=== PATIENT | female | born 1945 | race Caucasian/White ===

== ENCOUNTER 2016-12-19 21:24 | Emergency (ER) | payer OTHER ==
[~2016-12-19] VITALS: Ht 170.2 cm; Wt 68.0 kg
[~2016-12-19 21:24] MED LIST: ALEN70TA30 PO; ATOR20TA38 PO; DIGO125T PO; DILT240C98 PO; GLAT20KI2 SQ; LOV60I SC; METO-448 PO
--- NOTE | 2016-12-19 21:35 | ERA ---
ER Documentation Chief Complaint Date/Time DATE: 12/19/16 TIME: 21:35 Chief Complaint Shortness of breath HPI The patient is a 71-year-old female, presenting to the ER because of acute on chronic cough and shortness of breath today. She denies fever, chills, nasal congestion, nasal discharge, neck pain, chest pain with exertion or vomiting or diaphoresis. She denies abdominal pain, vomiting, dysuria, diarrhea, constipation. She does not smoke or drink Past medical history: Hypertension, dyslipidemia, osteoporosis, atrial fibrillation, dementia, MS, COPD Past surgical history: Back, hysterectomy, cholecystectomy ROS All systems reviewed and are negative except as per history of present illness. Medications Home Meds Reported Medications Glatiramer Acetate (Copaxone) 20 Mg/Kit Kit, SQ DAILY, #30 SYR 02/06/16 Enoxaparin Sodium (Enoxaparin Sodium) 60 Mg/0.6 Ml Syringe, 60 MG SC BID, SYR 02/06/16 Alendronate Sodium* (Fosamax*) 70 Mg Tablet, 70 MG PO Q7D, #4 TAB 02/06/16 Atorvastatin Calcium* (Atorvastatin Calcium*) 20 Mg Tablet, 20 MG PO QHS, #30 TAB 02/06/16 Digoxin* (Digoxin*) 0.125 Mg Tab, 0.125 MG PO DAILY, #30 TAB 02/06/16 Metoprolol Tartrate* (Lopressor*) 25 Mg Tab, 25 MG PO BID, #60 TAB 02/06/16 Diltiazem Hcl* (Diltiazem XT) 240 Mg Capsule.er, 240 MG PO BID, #30 CAP 02/06/16 Allergies Allergies: Coded Allergies: No Known Allergy (Unverified , 02/06/16) PMhx/Soc History of Surgery: Yes (BACK, HYSTERECTOMY, GALL BLADDER) Anesthesia Reaction: No Hx Neurological Disorder: Yes (DEMENTIA, STROKE) Hx Respiratory Disorders: No Hx Cardiac Disorders: Yes (A-FIB) Hx Psychiatric Problems: No Hx Miscellaneous Medical Probl: Yes (MS) Hx Alcohol Use: No Hx Substance Use: Yes Hx Tobacco Use: Yes Physical Exam Vitals Vital Signs Date Time Temp Pulse Resp B/P Pulse Ox O2 Delivery O2 Flow Rate FiO2 12/19/16 22:40 88 28 97 Nasal Cannula 2.0 28 12/19/16 22:36 Nasal Cannula 2 12/19/16 21:40 98.1 80 27 131/63 93 Physical Exam Const: No acute distress. Head: Atraumatic. Eyes: Normal Conjunctiva. ENT: Normal External Ears, Nose and Mouth. Neck: Full range of motion. No meningismus. Resp: Bilateral expiratory wheezes and rhonchi Cardio: Irregularly irregular Abd: Soft, non distended, normal bowel sounds, non tender. Skin: No petechiae or rashes. Back: No midline or flank tenderness. Ext: No cyanosis, or edema. Neur: Awake and alert. No focal deficit Psych: Normal Mood and Affect. Result Diagram: 12/19/16224412/19/162244 Results 24 hrs Laboratory Tests Test 12/19/16 22:39 12/19/16 22:45 12/19/16 23:40 Bedside Urine Blood 3+ Bedside Urine Glucose (UA) Negative Bedside Urine Ketones (LAB) Negative Bedside Urine Leukocyte Esterase (L Trace Bedside Urine Nitrite (LAB) Negative Bedside Urine Protein (LAB) 2+ Bedside Urine pH (LAB) 5.5 Activated Partial Thromboplast Time 54.6Sec Alanine Aminotransferase (ALT/SGPT) 23IU/L Albumin 4.2g/dl Albumin/Globulin Ratio 1.05 Alkaline Phosphatase 84IU/L Anion Gap 20 Aspartate Amino Transf (AST/SGOT) 28IU/L B-Type Natriuretic Peptide 1050PG/ML Basophils # 0.010^3/ul Basophils % 0.3% Blood Urea Nitrogen 27mg/dl Calcium Level 9.6mg/dl Carbon Dioxide Level 25mmol/L Chloride Level 103mmol/L Creatinine 0.90mg/dl Digoxin Level 1.1ng/ml Direct Bilirubin 0.00mg/dl Eosinophils # 0.110^3/ul Eosinophils % 1.0% Globulin 4.00g/dl Glucose Level 108mg/dl Hematocrit 39.9% Hemoglobin 13.5g/dl INR International Normalized Ratio 1.31 Indirect Bilirubin 0.2mg/dl Lactic Acid Level 1.7mmol/L 1.6mmol/L Lymphocytes # 1.210^3/ul Lymphocytes % 8.8% Mean Corpuscular Hemoglobin 31.0pg Mean Corpuscular Hemoglobin Concent 33.8g/dl Mean Corpuscular Volume 91.5fl Mean Platelet Volume 9.9fl Monocytes # 0.810^3/ul Monocytes % 6.0% Neutrophils # 11.410^3/ul Neutrophils % 83.3% Nucleated Red Blood Cells # 0.010^3/ul Nucleated Red Blood Cells % 0.0/100WBC Platelet Count 54669^3/UL Potassium Level 4.6mmol/L Prothrombin Time 16.4Sec Prothrombin Time Ratio 1.3 Red Blood Count 4.3610^6/ul Red Cell Distribution Width 13.3% Sodium Level 143mmol/L Total Bilirubin 0.2mg/dl Total Protein 8.2g/dl Troponin I 0.022ng/ml White Blood Count 13.710^3/ul Current Medications Medications (Trade) Dose Ordered Sig/Sunil Route PRN Reason Start Time Stop Time Status Last Admin Dose Admin Levalbuterol (Xopenex Neb) 1.25 mg ONCE ONCE N 12/19/16 22:00 12/19/16 22:01 DC 12/19/16 22:40 Ipratropium [place] 0.5 mg 0.5 mg ONCE ONCE N 12/19/16 22:00 12/19/16 22:01 DC 12/19/16 22:40 Levofloxacin/ Dextrose (Levaquin 750 Mg/ D5W 150 ml (Pmx)) 150 ml @ 100 mls/hr ONCE ONCE IVPB 12/20/16 00:30 12/20/16 01:59 12/20/16 00:22 Methylprednisolone Sodium Succinate (Solu-Medrol) 125 mg ONCE ONCE IV 12/20/16 00:30 12/20/16 00:31 DC 12/20/16 00:23 Procedures/MDM EKG: Read by emergency physician Rate/Rhythm: Atrial fibrillation 78 beats/min QRS, ST, T-waves: No ST elevation, no T inversion, nonspecific ST and T abnormality, LAD Impression: Abnormal EKG [place] [id number] Radiology Main Line: [phone] DIAGNOSTIC IMAGING REPORT Patient: JULIO MARTINEZ : 1945 Age: 71 Sex: F MR #: [id number] DOS: 12/19/16 2139 Ordering MD: STERLING SOLORIO MD Location: E/R Room/Bed: PROCEDURE: XR Chest. CLINICAL INDICATION: Cough and fever. TECHNIQUE: Single frontal view of the chest was obtained COMPARISON: None FINDINGS: Cardiomegaly and atherosclerotic calcifications in the thoracic aorta. The lungs are clear. There is no pleural effusion or pneumothorax. IMPRESSION: No acute disease. RPTAT: [facility] Physician Fuad Date Time Electronically viewed and signed by Physician Fuad on 12/19/2016 22:31 RS/ CC: STERLING SOLORIO MD MEDICAL MAKING DECISION: The patient is a 71-year-old female, presenting with acute COPD exacerbation, acute dehydration. She was treated with Xopenex 1.25 mg and Atrovent 0.5 mg bolus, Levaquin IV, Solu-Medrol 125 mg IV and normal saline 500 mL IV with good response. The differential diagnoses considered include but are not limited to asthma, COPD, pneumonia, pulmonary embolus, pleural effusion, congestive heart failure. Critical Care: Time: 35 minutes excluding all billable procedures. Treatments/Evaluations: Close monitoring and treatment of unstable vital signs, cardiorespiratory, and neurologic status, while maintaining tight balance of fluid, respiratory, and cardiac interventions. Departure Diagnosis: Primary Impression: COPD exacerbation Additional Impression: Dehydration Condition: Stable Comments I discussed the findings with the patient. I discussed the patient with the [facility] physician Dr Ferrari who was made aware of the lab, the treatment, the patient condition. He accepted the patient at 12:50 AM; the patient is transferred via ambulance to [facility] facility STERLING SOLORIO MD Dec 19, 2016 21:35
[2016-12-19 21:40] VITALS: Ht 170.2 cm; Wt 68.0 kg
[2016-12-19] MEDS ORDERED: LEVALBUTEROL (NEB) 1.25 MG/0.5 ML AMP HHN ONE (22:00)
[2016-12-19] MEDS ORDERED: IPRATROPIUM (NEB) 0.5 MG/2.5 ML AMP HHN ONE (22:00)
--- NOTE | 2016-12-19 22:31 | RADRPT ---
PROCEDURE: XR Chest. CLINICAL INDICATION: Cough and fever. TECHNIQUE: Single frontal view of the chest was obtained COMPARISON: None FINDINGS: Cardiomegaly and atherosclerotic calcifications in the thoracic aorta. The lungs are clear. There is no pleural effusion or pneumothorax. IMPRESSION: No acute disease. RPTAT: [facility] Physician Fuad Date Time Electronically viewed and signed by Rai Garcia Physician on 12/19/2016 22:31 RS/
[2016-12-19 22:37] LABS: URINE BLOOD (Dip) POC 3+ (NEGATIVE)
[2016-12-19 23:12] LABS: ADD SCAN DIFF NO
[2016-12-19 23:15] LABS: BASOPHILS % 0.3 % (0.0-2.0); EOSINOPHILS # 0.1 10^3/ul (0.0-0.5); HEMATOCRIT 39.9 % (37.0-47.0); HEMOGLOBIN 13.5 g/dl (12.0-16.0); LYMPHOCYTES # 1.2 10^3/ul (0.8-2.9); LYMPHOCYTES % 8.8 % (15.0-51.0); MEAN CORPUSCULAR HGB CONC 33.8 g/dl (32.0-37.0); MEAN CORPUSCULAR VOLUME 91.5 fl (82.0-101.0); MEAN PLATELET VOLUME 9.9 fl (7.4-10.4); MONOCYTE # 0.8 10^3/ul (0.3-0.9); NEUTROPHIL # 11.4 10^3/ul (1.6-7.5); NEUTROPHILS % 83.3 % (39.0-77.0); PLATELET COUNT 224 10^3/UL (140-415); RED BLOOD COUNT 4.36 10^6/ul (4.20-5.40); RED CELL DISTRIBUTION WIDTH 13.3 % (11.5-14.5); WHITE BLOOD COUNT 13.7 10^3/ul (4.8-10.8)
[2016-12-19 23:25] LABS: INR 1.31; PROTIME 16.4 Sec (12.2-14.2); PT RATIO 1.3
[2016-12-19 23:27] LABS: PARTIAL THROMBOPLASTIN TIME 54.6 Sec (25.0-35.0)
[2016-12-19 23:53] LABS: ALBUMIN 4.2 g/dl (3.3-4.9)
[2016-12-19 23:54] LABS: POTASSIUM 4.6 mmol/L (3.5-5.1)
[2016-12-19 23:56] LABS: ALBUMIN/GLOBULIN RATIO 1.05; BILIRUBIN,INDIRECT 0.2 mg/dl (0-1.1); BILIRUBIN,TOTAL 0.2 mg/dl (0.2-1.3); CREATININE 0.9 mg/dl (0.44-1.00); TOTAL PROTEIN 8.2 g/dl (6.1-8.1)
[2016-12-19 23:57] LABS: CALCIUM 9.6 mg/dl (8.4-10.2)
[2016-12-20] MEDS ORDERED: LEVOFLOXACIN 750MG/D5W (PMX) 150 ML IVPB ONE (00:30)
[2016-12-20] MEDS ORDERED: METHYLPREDNISOLONE 125 MG INJ IV ONE (00:30)
[2016-12-20 00:32] LABS: TROPONIN-I 0.022 ng/ml (0.00-0.12)
[2016-12-20] MEDS ORDERED: SOD CHLORIDE 0.9% 500 ML IV ONE (01:00)
[2016-12-20 02:56] VITALS: BP 108/53; PULSE 67; RESP 22; TEMP 98
== END 2016-12-20 03:01 | disposition short-term general hospital (02) ==
LOC: E/R 21:24
DX: J44.1 Chronic obstructive pulmonary disease with (acute) exacerbation (principal); E86.0 Dehydration; I10 Essential (primary) hypertension; R50.9 Fever, unspecified; Z87.891 Personal history of nicotine dependence; Z79.01 Long term (current) use of anticoagulants
CPT/HCPCS: 71010; 80053; 80162; 81003; 83605; 83880; 84484; 85025; 85610; 85730; 87040; 87086; 93005; 94664; 96365; 96366; 96375; 99291; J1956; J2930; J7040

== ENCOUNTER 2016-12-30 00:32 | Emergency (ER) | payer OTHER ==
[~2016-12-30] VITALS: Ht 172.7 cm; Wt 54.5 kg
[2016-12-30 00:36] VITALS: Ht 172.7 cm; Wt 54.5 kg
[2016-12-30] MEDS ORDERED: METHYLPREDNISOLONE 125 MG INJ IV STA (00:36)
[2016-12-30] MEDS ORDERED: ALBUTEROL 0.5% (NEB) 2.5 MG/0.5 ML AMP INH STA (00:36)
[2016-12-30] MEDS ORDERED: IPRATROPIUM (NEB) 0.5 MG/2.5 ML AMP INH STA (00:36)
--- NOTE | 2016-12-30 01:09 | RADRPT ---
PROCEDURE: XR Chest. CLINICAL INDICATION: Sepsis. TECHNIQUE: Single frontal chest x-ray. COMPARISON: 12/19/2016 FINDINGS: There are bilateral calcified breast implants. Heart is mildly enlarged. There are atherosclerotic calcifications of the aortic knob. There is no CHF.. No focal infiltrate is seen. There is no pleur al effusion. There is no pneumothorax. Bones are osteopenic.. IMPRESSION: No CHF or acute infiltrate. RPTAT: [facility]VK .David Vaughan MD, MD Date Time Electronically viewed and signed by .David Vaughan MD, on 12/30/2016 01:09 .K/
[2016-12-30 03:19] LABS: ADD SCAN DIFF NO
[2016-12-30 03:37] LABS: INR 1.29; PROTIME 16.2 Sec (12.2-14.2); PT RATIO 1.3
[2016-12-30 03:38] LABS: PARTIAL THROMBOPLASTIN TIME 20.9 Sec (25.0-35.0)
[2016-12-30 03:39] LABS: ABNORMAL IP MESSAGE 1; HEMATOCRIT 42.9 % (37.0-47.0); HEMOGLOBIN 14.2 g/dl (12.0-16.0); MEAN CORPUSCULAR HGB CONC 33.1 g/dl (32.0-37.0); MEAN CORPUSCULAR VOLUME 93.7 fl (82.0-101.0); MEAN PLATELET VOLUME 10.2 fl (7.4-10.4); PLATELET COUNT 191 10^3/UL (140-415); RED BLOOD COUNT 4.58 10^6/ul (4.20-5.40); RED CELL DISTRIBUTION WIDTH 14.1 % (11.5-14.5); WHITE BLOOD COUNT 27.7 10^3/ul (4.8-10.8)
[2016-12-30 03:59] LABS: CHLORIDE 105 mmol/L (97-110)
[2016-12-30 04:00] LABS: ALBUMIN 3.5 g/dl (3.3-4.9); POTASSIUM 4.3 mmol/L (3.5-5.1); SODIUM 146 mmol/L (135-144)
[2016-12-30 04:02] LABS: ANION GAP 15 (8-16); BILIRUBIN,INDIRECT 0.4 mg/dl (0-1.1); BILIRUBIN,TOTAL 0.4 mg/dl (0.2-1.3); CARBON DIOXIDE 30 mmol/L (21-31); CREATININE 0.88 mg/dl (0.44-1.00)
[2016-12-30 04:03] LABS: ALANINE AMINOTRANSFERASE 25 IU/L (13-69); ALBUMIN/GLOBULIN RATIO 1.02; ALKALINE PHOSPHATASE 63 IU/L (42-121); ASPARTATE AMINO TRANSFERASE 23 IU/L (15-46); BLOOD UREA NITROGEN 36 mg/dl (7-20); CALCIUM 9.2 mg/dl (8.4-10.2); GLUCOSE 124 mg/dl (70-220); TOTAL PROTEIN 6.9 g/dl (6.1-8.1)
[2016-12-30 04:16] LABS: TROPONIN-I < 0.012 ng/ml (0.00-0.12)
[2016-12-30 04:19] LABS: LYMPHOCYTES # 1.1 10^3/ul (0.8-2.9); MONOCYTE # 0.8 10^3/ul (0.3-0.9); NEUTROPHIL # 24.1 10^3/ul (1.6-7.5)
[2016-12-30 04:20] LABS: PLATELET ESTIMATE PLT APPEAR ADEQUATE
--- NOTE | 2016-12-30 05:05 | ERD ---
ER Documentation Chief Complaint Date/Time DATE: 12/30/16 TIME: 05:02 Chief Complaint MELL RA 39 from home, SOB HPI This is a 71 year from primary risk of 39 from home. Patient comes in for shortness of breath. Patient has history of COPD. She was recently discharged from [place] for the same. She was placed on metformin and glipizide for elevated blood sugars at [place] as well. And also placed on outpatient steroids. ROS All systems reviewed and are negative except as per history of present illness. Medications Home Meds Reported Medications Glatiramer Acetate (Copaxone) 20 Mg/Kit Kit, SQ DAILY, #30 SYR 02/06/16 Enoxaparin Sodium (Enoxaparin Sodium) 60 Mg/0.6 Ml Syringe, 60 MG SC BID, SYR 02/06/16 Alendronate Sodium* (Fosamax*) 70 Mg Tablet, 70 MG PO Q7D, #4 TAB 02/06/16 Atorvastatin Calcium* (Atorvastatin Calcium*) 20 Mg Tablet, 20 MG PO QHS, #30 TAB 02/06/16 Digoxin* (Digoxin*) 0.125 Mg Tab, 0.125 MG PO DAILY, #30 TAB 02/06/16 Metoprolol Tartrate* (Lopressor*) 25 Mg Tab, 25 MG PO BID, #60 TAB 02/06/16 Diltiazem Hcl* (Diltiazem XT) 240 Mg Capsule.er, 240 MG PO BID, #30 CAP 02/06/16 Allergies Allergies: Coded Allergies: No Known Allergy (Unverified , 02/06/16) PMhx/Soc History of Surgery: Yes (BACK, HYSTERECTOMY, GALL BLADDER) Anesthesia Reaction: No Hx Neurological Disorder: Yes (DEMENTIA, STROKE) Hx Respiratory Disorders: No Hx Cardiac Disorders: Yes (A-FIB) Hx Psychiatric Problems: No Hx Miscellaneous Medical Probl: Yes (MS) Hx Alcohol Use: No Hx Substance Use: Yes Hx Tobacco Use: Yes Smoking Status: Former smoker Physical Exam Vitals Vital Signs Date Time Temp Pulse Resp B/P Pulse Ox O2 Delivery O2 Flow Rate FiO2 12/30/16 04:27 98.7 63 19 121/48 95 Room Air 12/30/16 03:26 78 28 91 Room Air 12/30/16 02:25 73 33 110/61 92 Nasal Cannula 2.0 12/30/16 02:08 72 28 91/73 95 Room Air 12/30/16 00:45 70 96 50 12/30/16 00:36 98.7 81 18 123/91 97 Physical Exam Const: [] Head: Atraumatic Eyes: Normal Conjunctiva ENT: Normal External Ears, Nose and Mouth. Neck: Full range of motion..~ No meningismus. Resp: Clear to auscultation bilaterally Cardio: Regular rate and rhythm, no murmurs Abd: Soft, non tender, non distended. Normal bowel sounds Skin: No petechiae or rashes Back: No midline or flank tenderness Ext: No cyanosis, or edema Neur: Awake and alert Psych: Normal Mood and Affect Result Diagram: 12/30/1631112/30/162 Results 24 hrs Laboratory Tests Test 12/30/16 03:12 Activated Partial Thromboplast Time 20.9Sec Alanine Aminotransferase (ALT/SGPT) 25IU/L Albumin 3.5g/dl Albumin/Globulin Ratio 1.02 Alkaline Phosphatase 63IU/L Anion Gap 15 Aspartate Amino Transf (AST/SGOT) 23IU/L Band Neutrophils % 6.0% Blood Urea Nitrogen 36mg/dl Calcium Level 9.2mg/dl Carbon Dioxide Level 30mmol/L Chloride Level 105mmol/L Creatinine 0.88mg/dl Direct Bilirubin 0.00mg/dl Globulin 3.40g/dl Glucose Level 124mg/dl Hematocrit 42.9% Hemoglobin 14.2g/dl INR International Normalized Ratio 1.29 Indirect Bilirubin 0.4mg/dl Lactic Acid Level 3.5mmol/L Lymphocytes # 1.110^3/ul Lymphocytes % 4.0% Mean Corpuscular Hemoglobin 31.0pg Mean Corpuscular Hemoglobin Concent 33.1g/dl Mean Corpuscular Volume 93.7fl Mean Platelet Volume 10.2fl Monocytes # 0.810^3/ul Monocytes % 3.0% Neutrophils # 24.110^3/ul Neutrophils % 87.0% Platelet Count 78539^3/UL Platelet Estimate PLT APPEAR ADEQUATE Potassium Level 4.3mmol/L Prothrombin Time 16.2Sec Prothrombin Time Ratio 1.3 Red Blood Count 4.5810^6/ul Red Cell Distribution Width 14.1% Sodium Level 146mmol/L Total Bilirubin 0.4mg/dl Total Protein 6.9g/dl Troponin I < 0.012ng/ml White Blood Count 27.710^3/ul Current Medications Medications (Trade) Dose Ordered Sig/Sunil Route PRN Reason Start Time Stop Time Status Last Admin Dose Admin Albuterol (Proventil 0.5% (Neb)) 10 mg ONCE STAT INH 12/30/16 00:36 12/30/16 00:39 DC 12/30/16 00:53 Ipratropium [place] (Atrovent 0.02% (Neb)) 1 mg ONCE STAT INH 12/30/16 00:36 12/30/16 00:39 DC 12/30/16 00:52 Methylprednisolone Sodium Succinate (Solu-Medrol) 125 mg ONCE STAT IV 12/30/16 00:36 12/30/16 00:39 DC 12/30/16 02:23 Procedures/MDM Chest X-ray 1V Interpreted by me: Soft Tissue: No acute abnormalities Bones: No acute abnormalities Mediastinum/Cardiac Silhouette/Lungs: [No acute abnormalities] Patient's lactic acid is elevated, however this is likely secondary to metformin and COPD exacerbation. Patient is also mildly dehydrated. White count elevation is likely secondary to chronic steroid use over the past 2 weeks as this was discussed with Dr. Alarcon from [place] Patient was difficult access. No IVs were able to be established. Patient refused central line. Medical decision making: Is a 71-year-old female presents with acute COPD exacerbation. Her lactic acid is likely related to metformin and glipizide use. White count is likely secondary to steroid use. At this point patient has improved significantly with increased pulse oximetry along with decreased respiratory rate and normalized breath sounds. Patient will be transferred to [place] via [facility] Critical Care: Time: 34 minutes Treatments/Evaluations: Close monitoring and treatment of unstable vital signs, cardiorespiratory, and neurologic status, while maintaining tight balance of fluid, respiratory, and cardiac interventions. Departure Diagnosis: Primary Impression: Shortness of breath Additional Impression: COPD (chronic obstructive pulmonary disease) COPD type: unspecified COPD Qualified Code: J44.9 - Chronic obstructive pulmonary disease, unspecified COPD type Condition: Serious VIRAJ CHAO Dec 30, 2016 05:04
[2016-12-30 06:04] LABS: ADD UMIC YES; URINE BILIRUBIN (Dip) NEGATIVE (NEGATIVE); URINE BLOOD (Dip) NEGATIVE (NEGATIVE); URINE COLOR LT. YELLOW (YELLOW); URINE GLUCOSE (Dip) NEGATIVE (NEGATIVE); URINE KETONES (Dip) NEGATIVE (NEGATIVE); URINE LEUKOCYTE ESTERASE (Dip) TRACE (NEGATIVE); URINE NITRITE (Dip) NEGATIVE (NEGATIVE); URINE TOTAL PROTEIN (Dip) NEGATIVE (NEGATIVE); URINE UROBILINOGEN (Dip) 0.2 E.U./dL (0.1-1.0)
[2016-12-30 06:09] VITALS: BP 108/65; PULSE 79; RESP 23; TEMP 97.9
[2016-12-30 06:20] LABS: SQUAMOUS EPITHELIAL CELL,UR FEW; URINE RBCS NONE SEEN /HPF (0)
== END 2016-12-30 06:18 | disposition short-term general hospital (02) ==
LOC: E/R 00:32
DX: R06.02 Shortness of breath (principal); J44.9 Chronic obstructive pulmonary disease, unspecified; Z87.891 Personal history of nicotine dependence; Z79.01 Long term (current) use of anticoagulants
CPT/HCPCS: 71010; 80053; 81001; 83605; 84484; 85025; 85610; 85730; 86756; 87040; 87086; 87400; 93005; 94644; 94660; A4310; J2930; 81003; 96374

== ENCOUNTER 2017-02-11 22:40 | Emergency (ER) | payer OTHER ==
[~2017-02-11] VITALS: Ht 172.7 cm; Wt 59.5 kg
[~2017-02-11 22:40] MED LIST changes: +ENOX60DI2 SC; -LOV60I SC
[2017-02-11] MEDS ORDERED: IPRATROPIUM (NEB) 0.5 MG/2.5 ML AMP INH STA (22:43)
[2017-02-11] MEDS ORDERED: ALBUTEROL 0.5% (NEB) 2.5 MG/0.5 ML AMP INH STA (22:43)
[2017-02-11] MEDS ORDERED: MAGNESIUM SULFATE 2 GM/50 ML 50 ML IVPB STA (22:43)
[2017-02-11] MEDS ORDERED: AZITHROMYCIN 250 MG TAB PO STA (22:43)
[2017-02-11] MEDS ORDERED: METHYLPREDNISOLONE 125 MG INJ IV STA (22:43)
[2017-02-11 23:00] VITALS: Ht 172.7 cm; Wt 59.5 kg
[2017-02-11] MEDS ORDERED: DILTIAZEM 25 MG INJ IV STA (23:01)
[2017-02-11] MEDS ORDERED: ACETAMINOPHEN 500 MG TAB PO STA (23:12)
[2017-02-11] MEDS ORDERED: SODIUM CHLORIDE 0.9% 1L BAG IV* STA (23:12)
[2017-02-11] MEDS ORDERED: CEFEPIME 2GM/50 ML (PMX) 50 ML IVPB STA (23:12)
[2017-02-11] MEDS: DILTIAZEM-D5W 125MG/125ML DRIP 125 ML IV STA ×2 (23:16→23:50)
[2017-02-11] MEDS ORDERED: VANCOMYCIN 1 GM (PMX) 250 ML IVPB ONE (23:30)
[2017-02-11 23:40] LABS: ABNORMAL IP MESSAGE 1; ADD SCAN DIFF NO; BASOPHILS % 0.2 % (0.0-2.0); HEMATOCRIT 44.9 % (37.0-47.0); HEMOGLOBIN 14.7 g/dl (12.0-16.0); LYMPHOCYTES # 0.5 10^3/ul (0.8-2.9); LYMPHOCYTES % 4.9 % (15.0-51.0); MEAN CORPUSCULAR HEMOGLOBIN 30.9 pg (29.0-33.0); MEAN CORPUSCULAR HGB CONC 32.7 g/dl (32.0-37.0); MEAN CORPUSCULAR VOLUME 94.5 fl (82.0-101.0); MEAN PLATELET VOLUME 9.5 fl (7.4-10.4); MONOCYTE # 0.2 10^3/ul (0.3-0.9); MONOCYTES % 1.6 % (0.0-11.0); NEUTROPHIL # 9.5 10^3/ul (1.6-7.5); PLATELET COUNT 258 10^3/UL (140-415); RED BLOOD COUNT 4.75 10^6/ul (4.20-5.40); RED CELL DISTRIBUTION WIDTH 16.2 % (11.5-14.5); WHITE BLOOD COUNT 10.4 10^3/ul (4.8-10.8)
--- NOTE | 2017-02-11 23:41 | RADRPT ---
PROCEDURE: XR Chest. CLINICAL INDICATION: Asthma exacerbation. TECHNIQUE: Single frontal view of the chest. COMPARISON: Chest dated 12/30/2016. FINDINGS: Cardiomegaly and atherosclerotic calcifications in the thoracic aorta. New right lung base pneumonia . New small right pleural effusion. Left lung remains substantially clear. No signs of pneumothorax are seen. The osseous structures and soft tissues are unremarkable. IMPRESSION: New right lung base pneumonia, with new small right pleural effusion. RPTAT: [facility] Physician Fuad Date Time Electronically viewed and signed by Rai Garcia Physician on 02/11/2017 23:41 RS/
[2017-02-11 23:52] LABS: NEUTROPHILS % 91.2 % (39.0-77.0)
[2017-02-12 00:04] LABS: CALCIUM 9.4 mg/dl (8.4-10.2); CREATININE 0.9 mg/dl (0.44-1.00); POTASSIUM 4.2 mmol/L (3.5-5.1)
[2017-02-12 00:14] LABS: TROPONIN-I 0.025 ng/ml (0.00-0.12)
--- NOTE | 2017-02-12 00:31 | ERA ---
ER Documentation Chief Complaint Date/Time DATE: 02/12/17 TIME: 00:27 Chief Complaint SHORTNESS OF BREATH HPI 72-year-old female history of COPD, recurrent pneumonia and urinary tract infection. Additionally, the patient is a DNR, DNI, supportive measures only with IV fluids and antibiotics. The patient presents with several days of shortness of breath. EMS reports the patient was significantly hypoxic with saturations in the 80s. Patient denies any chest pain. ROS All systems reviewed and are negative except as per history of present illness. Medications Home Meds Reported Medications Glatiramer Acetate (Copaxone) 20 Mg/Kit Kit, SQ DAILY, #30 SYR 02/06/16 Enoxaparin Sodium (Enoxaparin Sodium) 60 Mg/0.6 Ml Syringe, 60 MG SC BID, SYR 02/06/16 Alendronate Sodium* (Fosamax*) 70 Mg Tablet, 70 MG PO Q7D, #4 TAB 02/06/16 Atorvastatin Calcium* (Atorvastatin Calcium*) 20 Mg Tablet, 20 MG PO QHS, #30 TAB 02/06/16 Digoxin* (Digoxin*) 0.125 Mg Tab, 0.125 MG PO DAILY, #30 TAB 02/06/16 Metoprolol Tartrate* (Lopressor*) 25 Mg Tab, 25 MG PO BID, #60 TAB 02/06/16 Diltiazem Hcl* (Diltiazem XT) 240 Mg Capsule.er, 240 MG PO BID, #30 CAP 02/06/16 Allergies Allergies: Coded Allergies: No Known Allergy (Unverified , 02/06/16) PMhx/Soc History of Surgery: Yes (BACK, HYSTERECTOMY, GALL BLADDER) Anesthesia Reaction: No Hx Neurological Disorder: Yes (DEMENTIA, STROKE) Hx Respiratory Disorders: No Hx Cardiac Disorders: Yes (A-FIB) Hx Psychiatric Problems: No Hx Miscellaneous Medical Probl: Yes (MS) Hx Alcohol Use: No Hx Substance Use: Yes Hx Tobacco Use: Yes FmHx Family History: No diabetes Physical Exam Vitals Vital Signs Date Time Temp Pulse Resp B/P Pulse Ox O2 Delivery O2 Flow Rate FiO2 02/12/17 02:00 97.8 66 19 94/63 92 4.0 02/12/17 01:00 98.7 104 31 118/59 92 4.0 02/12/17 00:10 Nasal Cannula 4 02/12/17 00:10 Nasal Cannula 4.0 02/11/17 23:08 127 40 92 Nasal Cannula 4.0 35 02/11/17 23:00 101.2 168 32 133/115 89 Physical Exam General: Speaking in short sentences, increased work of breathing Head: Normocephalic, atraumatic. Eyes: Pupils equally reactive, EOM intact ENT: Moist mucous membranes Neck: Supple, no lymphadenopathy Respiratory: Rhonchi and wheezing bilaterally, Rales at the right base Cardiovascular: Tachycardia, irregularly irregular, no murmurs, rubs, or gallops Abdominal: Soft, non-tender, non-distended, no peritoneal signs : Deferred MSK: No edema, no unilateral swelling, 5/5 strength Neurologic: Alert and oriented, moving all extremities, normal speech, no focal weakness, no cerebellar signs Skin: No rash Psych: Normal mood Result Diagram: 02/11/17232202/11/172322 Results 24 hrs Laboratory Tests Test 02/11/17 23:23 02/12/17 00:37 02/12/17 01:38 White Blood Count 10.410^3/ul Red Blood Count 4.7510^6/ul Hemoglobin 14.7g/dl Hematocrit 44.9% Mean Corpuscular Volume 94.5fl Mean Corpuscular Hemoglobin 30.9pg Mean Corpuscular Hemoglobin Concent 32.7g/dl Red Cell Distribution Width 16.2% Platelet Count 64345^3/UL Mean Platelet Volume 9.5fl Neutrophils % 91.2% Lymphocytes % 4.9% Monocytes % 1.6% Eosinophils % 0.0% Basophils % 0.2% Nucleated Red Blood Cells % 0.0/100WBC Neutrophils # 9.510^3/ul Lymphocytes # 0.510^3/ul Monocytes # 0.210^3/ul Eosinophils # 0.010^3/ul Basophils # 0.010^3/ul Nucleated Red Blood Cells # 0.010^3/ul Sodium Level 141mmol/L Potassium Level 4.2mmol/L Chloride Level 108mmol/L Carbon Dioxide Level 27mmol/L Anion Gap 10 Blood Urea Nitrogen 37mg/dl Creatinine 0.90mg/dl Glucose Level 106mg/dl Lactic Acid Level 2.8mmol/L 3.1mmol/L Calcium Level 9.4mg/dl Troponin I 0.025ng/ml B-Type Natriuretic Peptide 298PG/ML Urine Color YELLOW Urine Clarity CLEAR Urine pH 6.0 Urine Specific [place] 1.025 Urine Ketones NEGATIVE Urine Nitrite NEGATIVE Urine Bilirubin NEGATIVE Urine Urobilinogen 0.2 E.U./dL Urine Leukocyte Esterase NEGATIVE Urine Hemoglobin NEGATIVE Urine Glucose NEGATIVE% Urine Total Protein NEGATIVE Current Medications Medications (Trade) Dose Ordered Sig/Sunil Route PRN Reason Start Time Stop Time Status Last Admin Dose Admin Albuterol (Proventil 0.5% (Neb)) 15 mg ONCE STAT INH 02/11/17 22:43 02/11/17 22:47 DC 02/11/17 23:07 Ipratropium Nathalie (Atrovent 0.02% (Neb)) 2 mg ONCE STAT INH 02/11/17 22:43 02/11/17 22:47 DC 02/11/17 23:07 Methylprednisolone Sodium Succinate 125 mg 125 mg ONCE STAT IV 02/11/17 22:43 02/11/17 22:47 DC 02/11/17 23:18 Magnesium Sulfate (Magnesium Sulfate 2 Gm/50 ml) 50 ml @ 25 mls/hr ONCE STAT IVPB 02/11/17 22:43 02/12/17 00:42 DC 02/11/17 23:19 Azithromycin (Zithromax) 500 mg ONCE STAT PO 02/11/17 22:43 02/11/17 22:47 DC 02/11/17 23:20 Diltiazem HCl 20 mg 20 mg ONCE STAT IV 02/11/17 23:01 02/11/17 23:02 DC 02/11/17 23:18 Diltiazem HCl (Cardizem-D5W 125 Mg/125 ml Drip) 125 ml @ 5 mls/hr ONCE STAT IV 02/11/17 23:01 02/13/17 00:00 02/11/17 23:50 Sodium Chloride 1840 ml 1,840 ml BOLUS OVER 2 HOURS STAT IV* 02/11/17 23:12 02/11/17 23:14 DC 02/11/17 23:30 Cefepime HCl 50 ml @ 100 mls/hr ONCE STAT IVPB 02/11/17 23:12 02/11/17 23:41 DC 02/12/17 00:48 Vancomycin HCl (Vancocin) 250 ml @ 125 mls/hr ONCE ONCE IVPB 02/11/17 23:30 02/12/17 01:29 DC 02/12/17 01:15 Acetaminophen (Tylenol Tab) 1,000 mg ONCE STAT PO 02/11/17 23:12 02/11/17 23:15 DC 02/11/17 23:29 Aspirin (Aspirin) 324 mg ONCE ONCE PO 02/12/17 01:00 02/12/17 01:01 DC 02/12/17 00:48 Procedures/MDM EKG, MONITORS, & DIAGNOSTIC IMAGING: EKG #1 EKG: I reviewed and interpreted a 12-lead EKG. Rhythm: A. fib with RVR Ectopy: None Intervals: No abnormalities ST segments: ST depressions in the anterior and lateral leads likely consistent with demand ischemia, consider rate related T waves: No contiguous inversions EKG #2 EKG: I reviewed and interpreted a 12-lead EKG. Rhythm: A. fib with RVR Ectopy: None Intervals: No abnormalities ST segments: ST depressions in anterior lateral leads consistent with demand ischemia, consider rate related T waves: No contiguous inversions Chest x-ray: I reviewed and interpreted a 1 view of the chest Mediastinum: No enlargement Cardiac silhouette: No cardiomegaly Airspace: Right lower lobe infiltrate Bones: No evidence of fracture PROCEDURES: Peripheral IV Insertion: Indication: Difficult IV access Location: Difficult access Attempts: 1 Angiocath-type: 18g The patient was consented prior to procedure and states understanding of risks, benefits, alternatives. Verbal consent was provided Sterile procedure was used to insert a peripheral IV. Indication, location and Angiocath-type are noted above. Ultrasound guidance was used to assist in the insertion of the Angiocath. Return of dark nonpulsatile blood was obtained, normal saline flushed through the Angiocath which was then secured to the skin. The patient tolerated the procedure well without complications. Emergency Bedside Ultrasound: The patient was verbally consented prior to procedure and understands the risks , benefits, and alternatives. The patient is agreeable to procedure and has given verbal consent. Indication: Peripheral IV insertion Probe Type: Linear Findings: Dynamic ultrasound utilized with compression technique with both linear and horizontal views. LAB INTERPRETATION: No leukocytosis, lactic acidosis that is worsening from 2.8-3.1. Negative troponin MEDICAL DECISION MAKING: Patient presents with multiple issues including fever, A. fib with RVR, respiratory distress and hypoxia. Her clinical syndrome and presentation is likely COPD with exacerbation, consider healthcare associated pneumonia, A. fib with RVR. Additionally, the patient has a DNR, DNI order that states advanced directive should consist of IV fluids and antibiotics as appropriate. No significant interventions such as central lines, intubations, surgeries. The patient will benefit from sepsis screening, fluid resuscitation, breathing treatments etc. ER COURSE: The patient had IV access issues. IV was obtained. The patient was given 30 cc /kg of saline. Blood cultures taken the patient was given vancomycin and cefepime to cover community-acquired pneumonia. Additionally, the patient was in A. fib with RVR requiring Cardizem bolus and drip. Her EKG showed evidence of demand ischemia. She has no chest pain. Troponin is negative. This is likely demand versus rate related. Aspirin provided. Additionally, given the patient's goals of care, emergent angiogram would not be appropriate. The patient was given Solu-Medrol and an hour-long breathing treatment with improved respiratory work of breathing and improved oxygen saturations. Tylenol provided. The patient does have Sirs criteria with source consistent with sepsis. She has evidence of endorgan dysfunction consistent with severe sepsis. The patient 's blood pressure has trended down concerning for early septic shock. Again, based on the patient's goals of care central line, intubation or pressors are not indicated. Continue with fluid resuscitation, close monitoring. I still believe the transfer to [facility] is appropriate. Given the patient's goals of care would benefit the patient from continuity of care. The patient is comfortable and escalation of care is not appropriate given her goals of care. The benefits outweigh the risks for transfer. ALS with the nurse transport will be sent from [facility]. I kept the patient and/or family informed of laboratory and diagnostic imaging results throughout the emergency room course. DISPOSITION PLAN: Transfer to [facility] CONSULTATION: Accepting care team and consultations: I discussed the current laboratory data, diagnostic imaging and emergency care provided. Admitting team: Dr. Lund, [facility] Admitting team indication: Insurance directed Sepsis Documentation: Patient's infectious symptoms have not stabilized and the patient is at risk of rapid decompensation. The patient will be admitted for careful hydration, antibiotic therapy, and infectious source control. SEVERE SEPSIS CRITERIA: Infectious source: Healthcare associated pneumonia End organ damage indicated by: [Lactate > 2.0 mmol/L Hypotension (SBP < 90 or >40 mmHG drop or MAP < 65) Acute Resp Failure (sat < 92% w/o oxygen) SEPSIS MANAGEMENT Time of recognition of severe sepsis/septic shock: [Upon arrival] 3 HOUR BUNDLE Blood cultures x 2 before broad-spectrum antibiotics: [Yes] 30 ml/kg NS bolus [Completed] Initial lactate 2.8 Repeat lactate 3.1 SEPTIC SHOCK ASSESSMENT: [No] lactic acid > 4.0 [No] Persistent hypotension (SBP < 90 or 40 mmHg drop, MAP < 65) despite 30 mL/ kg IV fluid bolus VOLUME REASSESSMENT FOR SEPTIC SHOCK: Reevaluation Time: 2:30 AM Temperature of 97.8 pulse 66 respirations 19 blood pressure 94/63 pulse ox 92 on 4 L Heart irregularly irregular Lungs rhonchi bilaterally Skin [Warm & dry] Cap Refill [Less than 2 seconds] Peripheral pulses [Radially present] PERSISTENT HYPOTENSION TREATMENT: Comfort care yes Central line [Not Required] Vasopressor started [Not required] I considered further perfusion assessment with CVP measurement, SCVO2, bedside ultrasound volume assessment, passive leg raise, trial of further fluid bolus. And proceeded with [30 ml/kg fluid bolus of NSS, broad spectrum antbiotics, and admission.] CRITICAL CARE Critical care time 47 minutes Emergent fluid management while maintaining close respiratory support. Provision of immediate and broad-spectrum antibiotic therapy. Simultaneous assessment for possible sources in order to direct targeted therapy. Consideration for invasive and chemical support to prevent cardiopulmonary collapse. Critical care time is independent of procedures performed. Departure Diagnosis: Primary Impression: Atrial fibrillation with RVR Additional Impressions: Severe sepsis Lactic acidosis Healthcare-associated pneumonia COPD with exacerbation DNR (do not resuscitate) DNI (do not intubate) Condition: EASTON Keane MD Feb 12, 2017 00:31
[2017-02-12] MEDS ORDERED: ASPIRIN 81 MG TAB PO ONE (01:00)
[2017-02-12 01:22] LABS: URINE BILIRUBIN (Dip) NEGATIVE (NEGATIVE); URINE BLOOD (Dip) NEGATIVE (NEGATIVE); URINE COLOR YELLOW (YELLOW); URINE GLUCOSE (Dip) NEGATIVE (NEGATIVE); URINE KETONES (Dip) NEGATIVE (NEGATIVE); URINE LEUKOCYTE ESTERASE (Dip) NEGATIVE (NEGATIVE); URINE NITRITE (Dip) NEGATIVE (NEGATIVE); URINE UROBILINOGEN (Dip) 0.2 E.U./dL (0.1-1.0)
[2017-02-12 01:36] LABS: ADD UMIC NO; URINE TOTAL PROTEIN (Dip) NEGATIVE (NEGATIVE)
[2017-02-12 03:59] VITALS: BP 97/56; PULSE 78; RESP 26; TEMP 98.9
== END 2017-02-12 06:58 ==
LOC: E/R 22:40
DX: I48.91 Unspecified atrial fibrillation (principal); R65.20 Severe sepsis without septic shock; A41.9 Sepsis, unspecified organism; J18.9 Pneumonia, unspecified organism; J44.1 Chronic obstructive pulmonary disease with (acute) exacerbation; Z66 Do not resuscitate; Z87.891 Personal history of nicotine dependence
CPT/HCPCS: 71010; 80048; 81003; 83605; 83880; 84484; 85025; 87040; 87086; 93005; 94644; 96374; 96375; 96376; 99291; J0692; J2930; J3370; J3475; J7030